=== PATIENT | female | born 1995 | race African-American/Black ===

== ENCOUNTER 2017-03-15 00:28 | Emergency (ER) | payer OTHER ==
[~2017-03-15] VITALS: Ht 162.6 cm; Wt 52.5 kg
[~2017-03-15 00:28] MED LIST: ALBUTEROL
[2017-03-15] MEDS ORDERED: IPRATROPIUM/ALBUTEROL 0.5-3(2.5)MG/3ML NEB HHN ONE (02:45)
[2017-03-15] MEDS ORDERED: PREDNISONE 20MG TABLET PO ONE (03:00)
[2017-03-15 03:30] VITALS: BP 130/85
== END 2017-03-15 06:52 | disposition home or self-care (01) ==
LOC: ER 06:49
DX: J45.909 Unspecified asthma, uncomplicated (principal)
CPT/HCPCS: 81025; 94640; 99283; J7512; Z7610; J7620